=== PATIENT | female | born 1960 | race Caucasian/White ===

== ENCOUNTER 2017-09-17 08:34 | Day surgery (SDC) | payer OTHER ==
[~2017-09-17] VITALS: Ht 144.8 cm; Wt 49.1 kg
[2017-09-17 10:04] VITALS: Ht 144.8 cm; Wt 49.1 kg
[2017-09-17] MEDS ORDERED: ATOR10TA65 PO (10:10)
[2017-09-17] MEDS ORDERED: LORA0.5T PO (10:10)
[2017-09-17] MEDS ORDERED: PANT20TA3 PO (10:10)
[2017-09-17] MEDS ORDERED: clonidine PO (10:10)
[2017-09-17] MEDS ORDERED: ASPI-535 PO (10:10)
[2017-09-17] MEDS ORDERED: HYDR50TA3 PO (10:10)
[2017-09-17] MEDS ORDERED: IBUP100T29 PO (10:10)
[2017-09-17] MEDS ORDERED: METF1000 PO (10:10)
[2017-09-17] MEDS ORDERED: LOSA25TA5 PO (10:10)
[2017-09-17] MEDS ORDERED: LIDOCAINE 2% (SDV) 5 ML INJ ONE (10:20)
[2017-09-17] MEDS ORDERED: PROPOFOL 60 ML ONE (10:20)
[2017-09-17 10:31] VITALS: BP 139/85; PULSE 55; RESP 18
--- NOTE | 2017-09-17 11:13 | OPPN ---
Date/Time of Note Date/Time of Note DATE: 09/17/17 TIME: 11:09 Proc Note GI Procedure Date 09/17/17 Indication: diagnostic Pre-procedure Diagnosis occult gi bleeding Post-procedure Diagnosis gastritis gastric polyps hemorrhoids Procedure Performed: Endoscopy, Colonoscopy Surgeon see signature line Ceramics Technician none Anesthesia Type: MAC Anesthesiologist: JOVAN WILKERSON MD Tourniquet Time none EBL none Transfusion required none Biopsy 1: gastric bx duod bx Grafts/Implants none Tubes/Drains none Complication(s) none Disposition: PACU Procedure Description egd and colonoscopy done under mac egd showed gastritis and gastric polyps colon showed hemorrhoids EDGARD REDMAN MD Sep 17, 2017 11:13
[2017-09-17 11:45] VITALS: BP 145/75; PULSE 50; RESP 18
--- NOTE | 2017-09-17 14:04 | GILP ---
DATE OF PROCEDURE: NAME OF PROCEDURE: Colonoscopy. PREOPERATIVE DIAGNOSIS: Occult gastrointestinal bleeding, rule out colon polyps. POSTOPERATIVE DIAGNOSES: Moderate degree of external hemorrhoids. Rest of the colon appeared iliana l. DESCRIPTION OF PROCEDURE: After the informed written consent was obtained, the patient was asked to lie on the left lateral side. Intravenous anesthesia was given by anesthesiologist, Dr. Alvarado. W hen the patient became somnolent, the Olympus video colonoscope was introduced into the rectum and s cope was advanced all the way to the cecum. Entire colon appeared perfectly normal with no mucosal abnormality. Endoscope at this time was withdrawn from the cecum. On the way out, further evaluati on was carried out and retroflexion was performed. Minimal internal hemorrhoids were noted when the scope was withdrawn, moderate degree of external hemorrhoids were noted and the procedure was termi nated. PLAN: Recommend repeat colonoscopy in 10 years. Dictated By: EDGARD COSTA/PAULA Conf#: [id number] DID#: [id number] CC: Saran Chan MD;*EndCC*
--- NOTE | 2017-09-17 14:21 | GILP ---
DATE OF PROCEDURE: NAME OF PROCEDURE: Esophagogastroduodenoscopy. PREOPERATIVE DIAGNOSIS: Patient presenting with a history of blood in the stools, rule out bleeding ulcer disease, neoplasm. POSTOPERATIVE DIAGNOSES: 1. Two polyps noted in the mid body of the stomach. Biopsies were done. 2. Diffuse mild to moderate degree of gastritis. 3. Decreased folds in the duodenum noted. Biopsies were done. DESCRIPTION OF PROCEDURE: After informed written consent was obtained, the patient was asked to lie on the left lateral side. Intravenous anesthesia was given by anesthesiologist, Dr. Alvarado. When the patient became somnolent, the Olympus video upper endoscope was introduced into the oropharynx, then into the esophagus. Esophagus showed evidence of normal findings, no mucosal abnormality. Sco pe at this time was advanced into the stomach. Stomach showed evidence of 2 polyps which is measuri ng about 5 to 6 mm in diameter. They are sessile, they looked like tubular polyps. Biopsies were d one. The rest of the stomach showed mild to moderate degrees of erythema and friability. With no u lcers, no neoplasm. Biopsy was done from the antrum, the lesser curvature and the fundus to rule ou t H. pylori infection. The mucosa of the duodenum; in fact the entire duodenum was examined, which showed evidence of decreased number of folds. Biopsies were done to rule out celiac sprue. Scope at this time was withdrawn and the procedure was terminated. PLAN: Recommend Pepcid 20 mg p.o. b.i.d. Dictated By: EDGARD COSTA/PAULA Conf#: [id number] DID#: [id number] CC: Saran Chan;*End*
== END 2017-09-17 15:30 | disposition home or self-care (01) ==
LOC: GIL 08:34
PROVIDERS: ATTEND Internal Medicine Gastroenterology
DX: Z12.11 Encounter for screening for malignant neoplasm of colon (principal); K29.50 Unspecified chronic gastritis without bleeding; K31.7 Polyp of stomach and duodenum; K64.4 Residual hemorrhoidal skin tags; I10 Essential (primary) hypertension; E11.9 Type 2 diabetes mellitus without complications; E78.5 Hyperlipidemia, unspecified; Z86.73 Personal history of transient ischemic attack (TIA), and cerebral infarction without residual deficits
CPT/HCPCS: 43239; 45378; 82962; 88305; 88312; Z7610